=== PATIENT | female | born 1955 | race Caucasian/White ===

== ENCOUNTER 2022-07-09 01:21 | Day surgery (SDC) | payer OTHER, SELFPAY ==
[2022-07-01 11:41] VITALS: BMI 31.4
--- NOTE | 2022-07-01 11:57 | PC.NURSE ---
Report to the Outpatient Waiting Room, entrance under the green pavilion located off [facility], at time __10:00AM on date __07/09/22 . OR Time: __12:00PM . Time changes happen often and if your time is changed the preop area will call you the afternoon before. - You and your visitor will be asked to self-screen and do not enter if you have any COVID symptoms. - Only one visitor and NO children visitors are allowed at this time. - The patient visitor is requested to leave or wait in car when not with patient due to restrictions. - A mask is required within the hospital. Patients may have clear liquids (water, carbonated beverages, clear teas, apple juice) until 3 hours prior to surgery with a maximum of 20 ounces. - No food from midnight until time of surgery Take the following medications with a SIP of water the morning of surgery: ____NONE Medications to discontinue per physician ___HOLD ASPIRIN PER DR CASTRO(PT CALLING MD OFFICE). HOLD ALL VITAMINS/SUPPLEMENT 3 DAYS PRE-OP - LAST DOSE 07/05/22 Please no make-up, nail [place], hairspray, perfume, deodorant, or body powder the day of surgery. No jewelry (including any body piercings) or valuables the day of surgery, leave them at home. Please take a shower or bath the night before, or the morning of, surgery with an antibacterial soap. Wear comfortable, loose fitting clothing. Children are encouraged to wear pajamas. - Jewelry must be removed prior to entering the operating room. Rings and piercings that are not removed may be cut off. - The hospital will not accept responsibility for valuables. - Please leave all valuables, including medications, at home the day of surgery. If you are going home after surgery, a licensed waste collection driver must drive you home. - NO public transportation without another adult. - We recommend that an adult stay with you for 24 hours following discharge. - We also recommend that you do not drive, make important decision, drink alcoholic beverages, or take any drugs that were not prescribed by your health care provider for at least 24 hours after your discharge time. Follow any additional instructions given to you from your surgeon. If you or anyone in your household have experienced Covid symptoms in the past week, please notify your surgeon or the nurse liaison at the phone number below for possible testing. Telephone instructions given to __PATIENT and asked if any additional questions and then verbalized understanding. Patient advised to call surgeon office or pre surgery nurse liaison [phone] if any additional questions.
--- NOTE | 2022-07-08 13:45 | PM.IMHP ---
H&P: HPI History of Present Illness Date/Time: 07/08/22 13:45 Chief Complaint: PMB Narrative: Melody is a 67yo postmenopausal who presented to clinic as a new patient for PMB. She reports a h/o PMB for at least the last 6 years. She had a D&C about 6 years ago; where benign polyps were noted. The bleeding stopped for approximately 6 months. She has continued to have PMB on and off about every 3-6 months. The bleeding lasts for about 1-3 days; red on the first day. She denies clots or cramping. She reports her old OBGYN wanted to do a hysterectomy but it was never approved by her insurance. She reports a h/o ID w/ stent x5; has extensive cardiac history and regularly follows with cardiology. [employer] showed thickened endometrium measuring 1.5cm. Review of Systems Review of Systems: All systems reviewed & are unremarkable except as noted in HPI and below PMFSH Past Medical History Medical History High blood pressure High cholesterol History of myocardial infarction Surgical History Surgical History History of delivery History of dilation and curettage remove polyps History of open heart surgery Hx of cholecystectomy Family History Family History Other Acute myocardial infarction Breast cancer Heart disease Social History Social History Smoking packs per day: 1 Smoking cigarettes per day: 20.0 Years smoked: 30 Smoking pack-years: 30.00 Smoking status: Former smoker Tobacco type: cigarettes Smoking end date: 03/26/04 Alcohol intake: current Drinks per week: 2 Alcohol use details: soically Substance use: never Additional living arrangements comments: [facility] Gender identity (if verbalized by the patient): Female Sexual Orientation (if Verbalized by the Patient): Straight or Heterosexual Spiritual care concerns: No Meds Home Medications and Allergies Home Medications Medication Instructions Recorded Confirmed Type aspirin 81 mg tablet,delayed 81 mg PO DAILY 05/18/22 07/01/22 History release atorvastatin 40 mg tablet (Lipitor) 40 mg PO DAILY 05/18/22 07/01/22 History losartan 25 mg tablet 25 mg PO DAILY 05/18/22 07/01/22 History omeprazole 40 mg capsule,delayed 40 mg PO DAILY 05/18/22 07/01/22 History release multivit-iron 18 mg-folic acid 400 1 tablet PO DAILY 07/01/22 07/01/22 History mcg-calcium 500 mg-minerals tablet (Daily Multiple For Women) omega 6-jzk-jdq-fish oil 1,000 mg 1 cap PO DAILY 07/01/22 07/01/22 History (120 mg-180 mg) capsule (Fish Oil) Allergies Allergy/AdvReac Type Severity Reaction Status Date / Time Sulfa (Sulfonamide Allergy Severe rash, Verified 07/01/22 11:36 Antibiotics) fever, Nausea and Vomiting amiodarone Allergy Difficulty Verified 07/01/22 11:36 Breathing Exam Const: General: cooperative, healthy appearing, comfortable and no acute distress Resp: Effort & Inspection: normal respiratory effort Cardio: Rate: regular rate GI: GI Palp: No abdominal tenderness and Yes Soft to palpation : Other: deferred to OR Skin: General skin exam: normal color Neuro: General: patient oriented x3 Extrem: General: normal to inspection Psych: Appearance: grossly normal Affect: normal affect Attitude: cooperative Assessment and Plan Assessment and plan (1) Postmenopausal bleeding: Code(s): N95.0 - Postmenopausal bleeding Status: Acute (2) Thickened endometrium: Code(s): R93.89 - Abnormal findings on diagnostic imaging of other specified body structures Status: Acute Plan - Proceed with hysteroscopy, D&C, polypectomy - Risks and benefits explained in detail
[2022-07-09] MEDS: ACETAMINOPHEN 500 MG TABLET 1000 MG PO (09:57)
[2022-07-09 10:00] VITALS: BP 126/75; PULSE 51; RESP 16; TEMP 36.4; O2SAT 100
[2022-07-09] MEDS: LACTATED RINGERS 1,000 ML 30 ML IV CONT (10:15)
--- NOTE | 2022-07-09 11:12 | WPDANESEPPF ---
Anes - Initial Pre Proc Eval Procedure: Operation Date: 07/09/22 12:00 Proposed Procedures p Hysteroscopy Dilation and Curettage with Polypectomy using Myosure - Charito Vasques MD Date/Time: 07/09/22 11:12 Surgeon: Charito Vasques MD Pre Op Diagnosis: Post Menopausal Bleeding Patient Data Age: 67 Gender: F Height: 1.52 m Weight: 74.8 kg Last Vital Signs Temp 36.4 C 07/09/22 10:00 Pulse 51 L 07/09/22 10:00 Resp 16 07/09/22 10:00 BP 126/75 07/09/22 10:00 Pulse Ox 100 07/09/22 10:00 O2 Del Method Room Air 07/09/22 10:00 Allergies Allergy/AdvReac Type Severity Reaction Status Date / Time amiodarone Allergy Severe Difficulty Verified 07/09/22 09:55 Breathing Sulfa (Sulfonamide Allergy Severe rash, Verified 07/01/22 11:36 Antibiotics) fever, Nausea and Vomiting Home Medications Medication Instructions Recorded Confirmed Type aspirin 81 mg tablet,delayed 81 mg PO DAILY 05/18/22 07/01/22 History release atorvastatin 40 mg tablet (Lipitor) 40 mg PO DAILY 05/18/22 07/09/22 History losartan 25 mg tablet 25 mg PO DAILY 05/18/22 07/09/22 History omeprazole 40 mg capsule,delayed 40 mg PO DAILY 05/18/22 07/09/22 History release multivit-iron 18 mg-folic acid 400 1 tablet PO DAILY 07/01/22 07/09/22 History mcg-calcium 500 mg-minerals tablet (Daily Multiple For Women) omega 6-xin-prm-fish oil 1,000 mg 1 cap PO DAILY 07/01/22 07/09/22 History (120 mg-180 mg) capsule (Fish Oil) Patient hx anesthesia problems: none Family hx anesthesia problems: none Results Review: All pre-operative results and documents have been reviewed as part of the pre-operative evaluation. [facility] Past Medical History Medical History High blood pressure High cholesterol History of myocardial infarction Surgical History Surgical History History of delivery History of dilation and curettage remove polyps History of open heart surgery Hx of cholecystectomy Family History Family History Other Acute myocardial infarction Breast cancer Heart disease Social History Social History Smoking packs per day: 1 Smoking cigarettes per day: 20.0 Years smoked: 30 Smoking pack-years: 30.00 Smoking status: Former smoker Tobacco type: cigarettes Smoking end date: 03/26/04 Alcohol intake: current Drinks per week: 2 Alcohol use details: soically Substance use: never Additional living arrangements comments: [facility] Gender identity (if verbalized by the patient): Female Sexual Orientation (if Verbalized by the Patient): Straight or Heterosexual Spiritual care concerns: No Anes - Eval Final PreProcedure Day of Procedure 07/09/22 11:12 Patient weight: obese Heart: regular rate and rhythm Lungs: clear to auscultation Airway: Mallampati scale class II Neurological: alert and oriented Last oral intake: >/= 8 hours ASA classification: III Emergent: no Anesthetic plan: proceed Results Review: All pre-operative results and documents have been reviewed as part of the pre-operative evaluation. Informed Consent: The patient's anesthetic plan and its attendant risks and benefits were discussed with the patient/family/POA. Questions were solicited and answers provided to the satisfaction of the patient/family/POA.
--- NOTE | 2022-07-09 11:50 | WPDHPUPDATE1 ---
History and Physical Update Update Date/Time: 07/09/22 11:50 History and Physical has been reviewed, including an updated exam of the patient. There are NO changes in the patient's condition. Risks, benefits, and alternatives have been discussed and questions answered. Patient agrees to proceed with procedure.
[2022-07-09 12:34] VITALS: BP 97/54; PULSE 52; RESP 12; O2SAT 100
[2022-07-09 13:00] VITALS: BP 111/55; PULSE 46; RESP 12
--- NOTE | 2022-07-09 13:30 | P.OP_ITS ---
Procedure Note - Detailed Date of Procedure 07/09/22 Pre-op Diagnosis Post Menopausal Bleeding Thickened endometrium Endocervical polyp Post-op Diagnosis Same Procedure Performed HSC, D&C, polypectomy Surgeon Charito Vasques MD Anesthesia MAC Findings Uterus sounded to 9cm; large polyp protruding through cervix, polyp removed in whole (8x1.5cm) arising from the left uterine wall, normal tubal ostia. Good hemostasis at end of case. Fluid deficit: 50cc Description of Procedure Melody was taken to the operating room where she was placed under sedation without complications. She was then prepped and draped in the usual sterile fashion in the dorsal lithotomy position with her legs in low Simon stirrups. A time-out was performed and no preoperative antibiotics were indicated. A bivalve speculum was placed within the vagina where the large polyp was vis ualized protruding through the cervix. The polyp was grasped with ring forceps and twisted along its stalk until it was easily removed. The polyp was very large and measured 8 cm x 1.5 cm. The cervix was noted to be dilated and the hysteroscope was then advanced into the uterine cavity. The bilateral tubal ostia were visualized. The origin of the polyp was noted to arising from the left uterine wall. Slightly thickened endometrium was noted along the posterior uterine wall. The hysteroscope was removed and a curettage was performed until good uterine cry was noted. An adequate sample was obtained. The hysteroscope was once again advanced into the uterine cavity which was noted to be normal. All instruments were removed from the vagina. Good hemostasis was noted. All sponge, lap, instrument, and needle counts were correct at the end the procedure. Patient was awoken from anesthesia and taken recovery in a stable condition with plans of same-day discharge home. Estimated Blood Loss -3.0 Pathology Yes (endometrial polyp and endometrial curretings) Complications No immediate complications Condition Stable Disposition Same day [facility] Billing Surgery - Charge Forward: Surgery Billing
== END 2022-07-09 13:07 | disposition home or self-care (01) ==
PROVIDERS: PCP Internal Medicine; Visit Provider Obstetrics & Gynecology
PROC: 0U5B8ZZ Destruction of Endometrium, Via Natural or Artificial Opening Endoscopic (ICD-10-PCS; CPT 58563; principal; 2022-07-09 12:00)
DX: N95.0 Postmenopausal bleeding (principal); N85.01 Benign endometrial hyperplasia; I10 Essential (primary) hypertension; E78.00 Pure hypercholesterolemia, unspecified; I25.2 Old myocardial infarction; Z87.891 Personal history of nicotine dependence; Z79.82 Long term (current) use of aspirin
CPT/HCPCS: 58558; 88305; A9270; J1100; J1885; J2250; J2704; J3010; J7120